=== PATIENT | male | born 1955 | race Caucasian/White ===

== ENCOUNTER 2017-02-22 06:26 | Day surgery (SDC) | payer OTHER ==
[~2017-02-22 06:26] MED LIST: DIAZEPAM 5 MG TAB PO
[2017-02-22] MEDS ORDERED: DIPHENHYDRAMINE 50 MG CAP PO (07:00)
[2017-02-22] MEDS ORDERED: SOD CHLORIDE 0.45% 1,000 ML IV (07:00)
[2017-02-22] MEDS ORDERED: FAMOTIDINE 20 MG TAB PO (07:00)
[2017-02-22 08:38] LABS: ADD MAN DIFF? NO
[2017-02-22 08:40] LABS: BASOPHILS % 0.3 % (0.0-2.0); EOSINOPHILS # 0.2 10^3/ul (0.0-0.5); EOSINOPHILS % 2.3 % (0.0-7.0); HEMATOCRIT 40.2 % (42.0-52.0); HEMOGLOBIN 13.8 g/dl (14.0-18.0); LYMPHOCYTES # 1.3 10^3/ul (0.8-2.9); LYMPHOCYTES % 19.1 % (15.0-51.0); MEAN CORPUSCULAR HEMOGLOBIN 31.1 pg (29.0-33.0); MEAN CORPUSCULAR HGB CONC 34.3 g/dl (32.0-37.0); MEAN CORPUSCULAR VOLUME 90.5 fl (82.0-101.0); MEAN PLATELET VOLUME 10.1 fl (7.4-10.4); MONOCYTE # 0.8 10^3/ul (0.3-0.9); MONOCYTES % 11.2 % (0.0-11.0); NEUTROPHIL # 4.7 10^3/ul (1.6-7.5); NEUTROPHILS % 66.4 % (39.0-77.0); PLATELET COUNT 174 10^3/UL (140-415); RED BLOOD COUNT 4.44 10^6/ul (4.70-6.10); RED CELL DISTRIBUTION WIDTH 12.6 % (11.5-14.5)
[2017-02-22] MEDS ORDERED: NITROGLYCERIN (IC) 100 MCG/ML INJ (08:44)
[2017-02-22] MEDS ORDERED: FENTAnyl 50 MCG/ML VIAL (08:44)
[2017-02-22] MEDS ORDERED: HEPARIN 1000 UNITS/ML 10 ML INJ (08:44)
[2017-02-22] MEDS ORDERED: IODIXANOL LOCM 100 ML BTL (08:44)
[2017-02-22] MEDS ORDERED: MIDAZOLAM 1 MG/ML 2 ML INJ (08:44)
[2017-02-22] MEDS ORDERED: VERAPAMIL 5 MG INJ (08:44)
[2017-02-22] MEDS ORDERED: LIDOCAINE 1% (MDV) 20 ML INJ (08:44)
[2017-02-22 08:49] LABS: ADD UMIC YES; UR ASCORBIC ACID NEGATIVE (NEGATIVE); UR BILIRUBIN (Dip) NEGATIVE (NEGATIVE); UR BLOOD (Dip) 1+ mg/dL (NEGATIVE); UR CLARITY CLEAR (CLEAR); UR COLOR YELLOW (YELLOW); UR GLUCOSE (Dip) NEGATIVE (NEGATIVE); UR KETONES (Dip) NEGATIVE (NEGATIVE); UR LEUKOCYTE ESTERASE (Dip) NEGATIVE Leu/ul (NEGATIVE); UR MUCUS FEW /HPF (NONE SEEN); UR NITRITE (Dip) NEGATIVE (NEGATIVE); UR RBC 1 /HPF (0-5); UR SPECIFIC GRAVITY (Dip) 1.026 (1.003-1.030); UR TOTAL PROTEIN (Dip) NEGATIVE (NEGATIVE); UR UROBILINOGEN (Dip) NEGATIVE (NEGATIVE); UR WBC 1 /HPF (0-5)
[2017-02-22 09:03] LABS: PROTIME 14.4 Sec (11.9-14.9); PT RATIO 1.1
[2017-02-22 09:04] LABS: PARTIAL THROMBOPLASTIN TIME 30.3 Sec (25.0-35.0)
[2017-02-22 09:38] LABS: CARBON DIOXIDE 28 mmol/L (21-31); CHLORIDE 104 mmol/L (97-110); CHOL/HDL RATIO 2.8 RATIO; CHOLESTEROL 165 mg/dl (100-200); GLUCOSE 90 mg/dl (70-220); HDL CHOLESTEROL 57 mg/dl (30-78); LDL CHOLESTEROL,CALCULATED 93 mg/dl; TRIGLYCERIDES 74 mg/dl (0-149)
[2017-02-22 09:43] LABS: ANION GAP 12 (8-16)
[2017-02-22 09:45] LABS: BLOOD UREA NITROGEN 16 mg/dl (7-20); CALCIUM 9.2 mg/dl (8.4-10.2); CREATININE 0.89 mg/dl (0.61-1.24); SODIUM 140 mmol/L (135-144)
[2017-02-22] MEDS ORDERED: AL HYDROX/MG HYDROX/SIMETH 30 ML CUP PO (10:00)
[2017-02-22] MEDS ORDERED: ACETAMINOPHEN 325 MG TAB PO (10:00)
[2017-02-22] MEDS ORDERED: morphine 2 MG INJ IV (10:00)
[2017-02-22] MEDS ORDERED: ONDANSETRON 4 MG INJ IV (10:00)
[2017-02-22] MEDS: SOD CHLORIDE 0.9% 1,000 ML IV (12:02)
== END 2017-02-22 14:33 | disposition home or self-care (01) ==
LOC: SDS 06:26
DX: I25.10 Atherosclerotic heart disease of native coronary artery without angina pectoris (principal); I10 Essential (primary) hypertension; E78.5 Hyperlipidemia, unspecified
CPT/HCPCS: 71045; 80048; 80061; 81001; 85025; 85610; 85730; 93005; 93458

== ENCOUNTER 2018-06-01 11:51 | Day surgery (SDC) | payer OTHER ==
[2018-06-01] MEDS ORDERED: FENTAnyl 50 MCG/ML VIAL (13:12)
[2018-06-01] MEDS ORDERED: PROPOFOL 20 ML (13:12)
[2018-06-01] MEDS ORDERED: ONDANSETRON 4 MG INJ IV (13:30)
[2018-06-01] MEDS ORDERED: FENTAnyl 50 MCG/ML VIAL IV ×3 (13:30)
== END 2018-06-01 15:20 | disposition home or self-care (01) ==
LOC: GIL 11:51
DX: Z12.11 Encounter for screening for malignant neoplasm of colon (principal); K64.8 Other hemorrhoids; D12.2 Benign neoplasm of ascending colon; D12.0 Benign neoplasm of cecum
CPT/HCPCS: 45380; 88305